=== PATIENT | male | born 2000 | race Caucasian/White ===

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

== ENCOUNTER 2020-03-31 11:22 | Emergency (ER) | payer MEDICAID ==
[~2020-03-31] VITALS: Ht 182.9 cm; Wt 58.6 kg
[2020-03-31] MEDS ORDERED: SULF1TAB49 PO (12:22)
[2020-03-31 12:27] VITALS: BP 134/86
== END 2020-03-31 12:27 | disposition home or self-care (01) ==
LOC: ER 11:23
DX: L03.116 Cellulitis of left lower limb (principal); F12.90 Cannabis use, unspecified, uncomplicated; Z79.899 Other long term (current) drug therapy
CPT/HCPCS: 99283

== ENCOUNTER 2022-07-14 15:05 | Emergency (ER) | payer MEDICAID ==
[~2022-07-14] VITALS: Ht 172.7 cm; Wt 59.0 kg
[2022-07-14 15:08] VITALS: BP 125/71
[2022-07-14] MEDS ORDERED: acetaminophen 325mg tablet PO ONE (15:45)
[2022-07-14] MEDS ORDERED: TETanus/Pertussis (Acell)/Diphther VAC/PF (Tdap-Adult) 0.5ml syringe IMVAC ONE (18:10)
== END 2022-07-14 19:18 | disposition home or self-care (01) ==
LOC: ER 15:06
DX: S01.01XA Laceration without foreign body of scalp, initial encounter (principal); F12.90 Cannabis use, unspecified, uncomplicated; X58.XXXA Exposure to other specified factors, initial encounter; Y93.89 Activity, other specified; Y92.89 Other specified places as the place of occurrence of the external cause; Y99.8 Other external cause status
CPT/HCPCS: 12001; 90471; 90715; 99283; J7030; A6449

== ENCOUNTER 2022-07-26 10:17 | Emergency (ER) | payer MEDICAID ==
[~2022-07-26] VITALS: Ht 172.7 cm; Wt 59.1 kg
[2022-07-26 10:20] VITALS: BP 123/73
--- NOTE | 2022-07-26 11:07 | NUR ---
leanna removed by Dr. Francois.
== END 2022-07-26 11:09 | disposition home or self-care (01) ==
LOC: ER 10:18
DX: S01.81XD Laceration without foreign body of other part of head, subsequent encounter (principal); Z48.00 Encounter for change or removal of nonsurgical wound dressing; Z87.81 Personal history of (healed) traumatic fracture; X58.XXXD Exposure to other specified factors, subsequent encounter
CPT/HCPCS: 99281

== ENCOUNTER 2024-10-28 19:42 | Emergency (ER) | payer SELFPAY ==
[~2024-10-28] VITALS: Ht 175.3 cm; Wt 50.3 kg
[2024-10-28 19:47] VITALS: BP 126/98; PULSE 91; RESP 15; O2SAT 99
[2024-10-28] MEDS ORDERED: AMOX-580 PO (20:34)
[2024-10-28] MEDS ORDERED: IBUP-862 PO (20:34)
[2024-10-28] MEDS: amox tr/potassium clavulanate 875/125mg TAB PO ONE (20:38)
[2024-10-28 20:39] VITALS: TEMP 98.6
== END 2024-10-28 20:39 | disposition home or self-care (01) ==
LOC: ER 19:43
DX: K05.30 Chronic periodontitis, unspecified (principal); F12.90 Cannabis use, unspecified, uncomplicated
CPT/HCPCS: 99283